=== PATIENT | male | born 1980 | race Asian ===

== ENCOUNTER 2018-05-12 14:52 | Emergency (ER) | payer SELFPAY ==
[~2018-05-12] VITALS: Ht 154.9 cm; Wt 81.6 kg
[2018-05-12 14:55] VITALS: BP_SYST 142
[2018-05-12 16:10] VITALS: BP_SYST 142
== END 2018-05-12 16:10 | disposition home or self-care (01) ==
LOC: SED 14:52
DX: J06.9 Acute upper respiratory infection, unspecified (principal); R03.0 Elevated blood-pressure reading, without diagnosis of hypertension
CPT/HCPCS: 71045; 99283